=== PATIENT | female | born 1985 | race American Indian/Alaskan Native ===

== ENCOUNTER 2017-06-08 15:33 | Emergency (ER) | payer SELFPAY ==
[2017-06-08 15:54] VITALS: BP 102/72
[2017-06-08] MEDS ORDERED: ASPIRIN PO ONE (15:55)
[2017-06-08 16:29] LABS: Basophils % (Auto) 0.7 % (0.0-1.8); Eosinophils # (Auto) 0.1 K/mm3 (0.0-0.4); Eosinophils % (Auto) 0.9 % (0.0-4.3); Hematocrit 30.2 % (30.3-42.9); Hemoglobin 9.1 gm/dl (10.1-14.3); Lymphocytes # (Auto) 1.4 K/mm3 (1.2-5.4); Lymphocytes % (Auto) 23.4 % (13.4-35.0); Mean Corpuscular HGB Conc 30 % (30-34); Monocytes # (Auto) 0.5 K/mm3 (0.0-0.8); Monocytes % (Auto) 8.2 % (0.0-7.3); Platelet Count 312 K/mm3 (140-440); Red Blood Count 4.86 M/mm3 (3.65-5.03)
[2017-06-08 16:39] LABS: Mean Corpuscular Hemoglobin 19 pg (28-32); Mean Corpuscular Volume 62 fl (79-97); Red Cell Distribution Width 20.9 % (13.2-15.2)
[2017-06-08 16:51] LABS: BUN/Creatinine Ratio 9; Blood Urea Nitrogen 6 mg/dL (7-17); Calcium 8.7 mg/dL (8.4-10.2); Hemolysis Index 4
[2017-06-08 17:56] LABS: Bacteria,Urine 4+ /HPF (Negative); Bilirubin,Urine NEG (Negative); Blood,Urine NEG (Negative); Color,Urine Yellow (Yellow); Mucus,Urine FEW /HPF; Nitrite,Urine NEG (Negative)
[2017-06-08 18:00] LABS: HCG Qualitative,Urine Negative (Negative)
== END 2017-06-08 22:20 | disposition left against medical advice (07) ==
LOC: ED 15:33
DX: R07.9 Chest pain, unspecified (principal); Z53.21 Procedure and treatment not carried out due to patient leaving prior to being seen by health care provider
CPT/HCPCS: 36415; 80048; 81001; 81025; 84484; 85025; 93005; 93010

== ENCOUNTER 2020-07-27 11:29 | Emergency (ER) | payer SELFPAY | END 2020-07-27 11:48 | LOC: ED 11:29 | DX: R42 Dizziness and giddiness (principal); Z53.21 Procedure and treatment not carried out due to patient leaving prior to being seen by health care provider ==